=== PATIENT | female | born 1940 | race Caucasian/White ===

== ENCOUNTER 2017-05-08 14:01 | Emergency (ER) | payer OTHER ==
[~2017-05-08] VITALS: Ht 170.2 cm; Wt 84.1 kg
[~2017-05-08 14:01] MED LIST: ACTO45TA PO; ASPI1TAB7; CARV6.25 PO; CYMB60CA PO; FLUTI110I INH; FURO20 PO; GLUCTAB PO; ISOS20TA38 PO; LISI10 PO; NAPR220T95 PO; NITR.4 SL; PLAV75TA PO; PROT40TA PO; RANO500 PO; ZOCO40TA PO; tumeric PO
[2017-05-08 14:41] VITALS: BP 123/55; TEMP 98.9; O2SAT 96
--- NOTE | 2017-05-08 16:04 | RADRPT ---
EXAM DATE/TIME: 05/08/2017 15:54 [facility] COMPARISON: No previous studies available for comparison. INDICATIONS : TRauma, patient fell hit head,. RADIATION DOSE: 30.35 CTDIvol (mGy) MEDICAL HISTORY : Cardiovascular disease. Hypertension. Chronic obstructive pulmonary disease. SURGICAL HISTORY : None. ENCOUNTER: Initial ACUITY: 1 day PAIN SCALE: 8/10 LOCATION: cranial TECHNIQUE: Multiple contiguous axial images were obtained of the head. Using automated exposure control and adj ustment of the mA and/or kV according to patient size, radiation dose was kept as low as reasonably a chievable to obtain optimal diagnostic quality images. DICOM format image data is available electro nically for review and comparison. FINDINGS: CEREBRUM: The ventricles are normal for age. No evidence of midline shift, mass lesion, hemorrhage or acute in farction. No extra-axial fluid collections are seen. POSTERIOR FOSSA: The cerebellum and brainstem are intact. The 4th ventricle is midline. The cerebellopontine angle i s unremarkable. EXTRACRANIAL: The visualized portion of the orbits is intact. SKULL: The calvaria is intact. No evidence of skull fracture. CONCLUSION: Normal examination for a patient of this age. Bro Patel MD on May 08, 2017 at 16:00 Board Certified Radiologist. This report was verified electronically.
--- NOTE | 2017-05-08 16:12 | RADRPT ---
EXAM DATE/TIME: 05/08/2017 15:19 [facility] COMPARISON: CHEST SINGLE AP, December 28, 2015, 10:50. INDICATIONS : Fell on concrete. Complains of chest pain. MEDICAL HISTORY : Chronic obstructive pulmonary disease. Diabetes mellitus type II. Hypertension. SURGICAL HISTORY : CABG. Hysterectomy. ENCOUNTER: Initial ACUITY: 1 day PAIN SCORE: 5/10 LOCATION: Bilateral chest FINDINGS: PA and lateral views of the chest demonstrate the lungs to be hypo-aerated without evidence of mass, infiltrate or effusion. The cardiomediastinal contours are unremarkable. Osseous structures are int act. Evidence of prior median sternotomy cardiac surgery. CONCLUSION: No acute disease. No significant change has occurred. Bro Patel MD on May 08, 2017 at 16:08 Board Certified Radiologist. This report was verified electronically.
--- NOTE | 2017-05-08 16:20 | RADRPT ---
EXAM DATE/TIME: 05/08/2017 15:54 [facility] COMPARISON: No previous studies available for comparison. INDICATIONS : Trauma, patient fell, complains of neck pain. RADIATION DOSE: 17.39 CTDIvol (mGy) MEDICAL HISTORY : Cardiovascular disease. Hypertension. Chronic obstructive pulmonary disease. SURGICAL HISTORY : Non-responsive. ENCOUNTER: Initial ACUITY: 1 day PAIN SCALE: 8/10 LOCATION: neck TECHNIQUE: Volumetric scanning of the cervical spine was performed. Multiplanar reconstructions in the sagittal, coronal and oblique axial planes were performed. Using automated exposure control and adjustment o f the mA and/or kV according to patient size, radiation dose was kept as low as reasonably achievable to obtain optimal diagnostic quality images. DICOM format image data is available electronically f or review and comparison. FINDINGS: VERTEBRAE: Normal vertebral body height. Degenerative changes C4-C7. ALIGNMENT: No evidence of subluxation. C2-C3: The bony spinal canal is normal in size. No evidence of disc bulge or herniation. The neural forami na are bilaterally patent. C3-C4: The bony spinal canal is normal in size. No evidence of disc bulge or herniation. The neural forami na are bilaterally patent. C4-C5: The bony spinal canal is normal in size. No evidence of disc bulge or herniation. The neural forami na are bilaterally patent. C5-C6: Minimal posterior disc osteophyte complex without canal stenosis. Moderate narrowing of left neural f oramen. Right neural foramina is patent C6-C7: The bony spinal canal is normal in size. No evidence of disc bulge or herniation. The neural forami na are bilaterally patent. C7-T1: The bony spinal canal is normal in size. No evidence of disc bulge or herniation. The neural forami na are bilaterally patent. CONCLUSION: 1. No fracture or subluxation. Anurag Walden MD on May 08, 2017 at 16:16 Board Certified Radiologist. This report was verified electronically.
--- NOTE | 2017-05-08 16:31 | RADRPT ---
EXAM DATE/TIME: 05/08/2017 15:39 [facility] COMPARISON: No previous studies available for comparison. INDICATIONS : Fell on concrete. Complains of left hand pain. MEDICAL HISTORY : Chronic obstructive pulmonary disease. Hypertension SURGICAL HISTORY : Hysterectomy. CABG. ENCOUNTER: Initial ACUITY: 1 day PAIN SCORE: 5/10 LOCATION: Left hand FINDINGS: Bony structures are demineralized probably osteopenic. There are osteoarthritic changes at the second metacarpal phalangeal joint no evidence of dislocation. There is osteoarthritic change at the first metacarpal multangular articulation. There is a transverse and minimally oblique fracture at the base of the proximal phalanx of the fifth finger with slight dorsal lateral angulation without distractio n of fragments or displacement CONCLUSION: Fracture base of proximal phalanx of the fifth finger. Bro Patel MD on May 08, 2017 at 16:26 Board Certified Radiologist. This report was verified electronically.
--- NOTE | 2017-05-08 16:33 | RADRPT ---
EXAM DATE/TIME: 05/08/2017 15:35 [facility] COMPARISON: No previous studies available for comparison. INDICATIONS : Fell on concrete. Complains of left forearm pain. MEDICAL HISTORY : Hypertension. Chronic obstructive pulmonary disease. Diabetes mellitus type II. SURGICAL HISTORY : CABG. Hysterectomy. ENCOUNTER: Initial ACUITY: 1 day PAIN SCORE: 5/10 LOCATION: Left forearm FINDINGS: Two view examination of the left forearm demonstrates no evidence of fracture or dislocation. Bony m ineralization is normal. The soft tissue structures are intact. CONCLUSION: Unremarkable examination of the left forearm. Bro Patel MD on May 08, 2017 at 16:29 Board Certified Radiologist. This report was verified electronically.
--- NOTE | 2017-05-08 16:33 | RADRPT ---
EXAM DATE/TIME: 05/08/2017 15:34 [facility] COMPARISON: No previous studies available for comparison. INDICATIONS : Fell on concrete, complains of pain left humerus. MEDICAL HISTORY : Chronic obstructive pulmonary disease. Diabetes mellitus type II. SURGICAL HISTORY : Hysterectomy. Carotid endarterectomy. ENCOUNTER: Initial ACUITY: 1 day PAIN SCORE: 5/10 LOCATION: Left humerus FINDINGS: Two view examination of the left humerus demonstrates no evidence of fracture or dislocation. Bony m ineralization is normal. The soft tissue structures are intact. CONCLUSION: No acute bony injury Bro Patel MD on May 08, 2017 at 16:30 Board Certified Radiologist. This report was verified electronically.
--- NOTE | 2017-05-08 16:35 | RADRPT ---
EXAM DATE/TIME: 05/08/2017 15:26 [facility] COMPARISON: No previous studies available for comparison. INDICATIONS : Fall on concrete. Complains of upper back pain. MEDICAL HISTORY : Chronic obstructive pulmonary disease. Diabetes mellitus type II. Hypertension. SURGICAL HISTORY : CABG. Hysterectomy. ENCOUNTER: Initial ACUITY: 1 day PAIN SCORE: 5/10 LOCATION: Thoracic spine FINDINGS: There is normal alignment of the thoracic vertebral bodies. Degenerative changes and kyphosis. Statu s post CABG Vertebral body height is maintained. No evidence of fracture or subluxation. Pedicles a re intact at all levels. The paravertebral reflections are not thickened. CONCLUSION: Degenerative changes and kyphosis. Anurag Walden MD on May 08, 2017 at 16:32 Board Certified Radiologist. This report was verified electronically.
--- NOTE | 2017-05-08 16:35 | RADRPT ---
EXAM DATE/TIME: 05/08/2017 15:27 [facility] COMPARISON: No previous studies available for comparison. INDICATIONS : Fell on concrete, complains of left knee pain. MEDICAL HISTORY : Hypertension. Chronic obstructive pulmonary disease. SURGICAL HISTORY : CABG. Hysterectomy. ENCOUNTER: Initial ACUITY: 1 day PAIN SCORE: 5/10 LOCATION: Left knee FINDINGS: There are vascular calcifications in the superficial femoral artery and popliteal artery. Bony struct ures are mildly demineralized and appear intact with no evidence of fracture or dislocation. Some mil d irregularity is noted of the soft tissues superficial to the patella which could be secondary to an external wrap bandage. CONCLUSION: No acute bony injury Bro Patel MD on May 08, 2017 at 16:31 Board Certified Radiologist. This report was verified electronically.
--- NOTE | 2017-05-08 16:36 | RADRPT ---
EXAM DATE/TIME: 05/08/2017 15:26 [facility] COMPARISON: No previous studies available for comparison. INDICATIONS : Fell on concrete, complains of lower back pain. MEDICAL HISTORY : Chronic obstructive pulmonary disease. Diabetes mellitus type II. SURGICAL HISTORY : CABG. Hysterectomy. ENCOUNTER: Initial ACUITY: 1 day PAIN SCORE: 5/10 LOCATION: Lumbar spine FINDINGS: Two view examination was performed. There are five non-rib bearing vertebral bodies. Anterolisthesis L4 on 5. Degenerative changes lower lumbar spine. Osteopenia without compression fracture.. The ped icles are intact. Bony mineralization is normal. No fracture is identified. CONCLUSION: 1. Anterolisthesis L4 on 5. 2. Degenerative changes. 3. Osteopenia Anurag Walden MD on May 08, 2017 at 16:33 Board Certified Radiologist. This report was verified electronically.
[2017-05-08] MEDS ORDERED: DIAZEPAM 5 MG TAB PO ONE (17:30)
[2017-05-08] MEDS ORDERED: ACETAMINOPHEN 325 MG TAB PO ONE (17:30)
--- NOTE | 2017-05-08 17:36 | PD ---
HPI Chief Complaint: Fall Time Seen by Provider: 17:09 Travel History International Travel<30 days: No Contact w/Intl Traveler<30days: No Traveled to known affect area: No History of Present Illness HPI 76yo F with PMH of CAD, asthma presents to the ED with c/o fall at 12:30pm today. Pt was walking from garage to her house and thinks that she step on the crack on the floor and fell on her left side. Pt hit her head and is complaining of left sided pain in her head, back pain, left shoulder pain, left arm pain, left fifth finger pain, and left knee pain. Pt has abrasion on left knee and small laceration on left forehead. Denies any LOC, dizziness, fever, chest pain, sob, n/v, abdominal pain, focal weakness or numbness. PFSH Past Medical History Anemia: Yes Arthritis: Yes Asthma: Yes Autoimmune Disease: No Anxiety: No Depression: Yes Heart Rhythm Problems: No Cancer: No Cardiac Catheterization: Yes Cardiovascular Problems: Yes High Cholesterol: Yes Chest Pain: Yes (current admit) Congestive Heart Failure: Yes COPD: Yes Cerebrovascular Accident: No Coronary Artery Disease: Yes Diabetes: Yes (type 2) Patient Takes Glucophage: No Diminished Hearing: Yes Endocrine: No GERD: Yes (and gerd) Genitourinary: No Hiatal Hernia: No Hypertension: Yes Immune Disorder: No Kidney Stones: No Musculoskeletal: Yes Neurologic: No Psychiatric: Yes Reproductive: No Respiratory: Yes Immunizations Current: Yes (FLU-2005) Migraines: No Myocardial Infarction: Yes (1979,1983) Renal Failure: No Seizures: No Sleep Apnea: No Thyroid Disease: No Ulcer: No Tetanus Vaccination: Unknown Influenza Vaccination: No ?: Not Menopausal: Yes Past Surgical History Abdominal Surgery: No AICD: No Cardiac Surgery: Yes (CABG TRIPLE,) Coronary Artery Bypass Graft: Yes (X 3) Ear Surgery: No Endocrine Surgery: No Eye Surgery: Yes (many years ago) Genitourinary Surgery: No Gynecologic Surgery: Yes (HYSTERECTOMY) Hysterectomy: Yes Insulin Pump: No Joint Replacement: No Oral Surgery: No Pacemaker: No Thoracic Surgery: No Other Surgery: Yes Social History Alcohol Use: Yes (rarely wine) Tobacco Use: Yes (QUIT ) Substance Use: No Allergies-Medications (Allergen,Severity, Reaction): Coded Allergies: propranolol (Unverified Adverse Reaction, Severe, 11/21/16) Reported Meds & Prescriptions Reported Meds & Active Scripts Active Ranexa 500 mg (Ranolazine) 500 Mg Tab 1 Tab PO BID 30 Days Prinivil 10 mg (Lisinopril) 10 Mg Tab 10 Mg PO DAILY Coreg 6.25 mg (Carvedilol) 6.25 Mg Tab 6.25 Mg PO BID Reported [tumeric] 1 Cap PO DAILY Aleve (Naproxen Sodium) 220 Mg Tab 220 Mg PO BID Nitroglycerin 0.4 Mg Subl 0.4 Mg SL DIRECTED Cymbalta (Duloxetine Hcl) 60 Mg Cap 60 Mg PO BID Flovent Hfa (Fluticasone Propionate) 110 Mcg/Act Aer 1 Puff INH BID Protonix (Pantoprazole Sodium) 40 Mg Tabdr 40 Mg PO BIDAC Zocor 40 mg (Simvastatin) 40 Mg Tab 40 Mg PO HS Aspirin 81 mg Tab (Aspirin) 81 Mg Tab DAILY Actos (Pioglitazone HCl) 45 Mg Tab 45 Mg PO DAILYAC Plavix (Clopidogrel Bisulfate) 75 Mg Tab 75 Mg PO DAILY Glucophage (Metformin HCl) 500 Mg Tab 500 Mg PO BID Lasix 20 Mg Tab (Furosemide) 20 Mg Tab 40 Mg PO DAILY Isosorbide Mononitrate 20 Mg Tab 40 Mg PO BID Review of Systems Except as stated in HPI: all other systems reviewed are Neg Physical Exam Narrative GENERAL: 76yo F in mild distress. SKIN: Focused skin assessment warm/dry. HEAD: Irregular shape laceration 1cm left forehead. EYES: Pupils equal and round at 3mm bilaterally. EOMI. ENT: No nasal bleeding or discharge. Mucous membranes pink and moist. NECK: Trachea midline. No JVD. CARDIOVASCULAR: Regular rate and rhythm. No murmur appreciated. RESPIRATORY: No accessory muscle use. Clear to auscultation. Breath sounds equal bilaterally. GASTROINTESTINAL: Abdomen soft, non-tender, nondistended. MUSCULOSKELETAL: Left hand: +TTP left fifth digit. Unable to fully extend fifth IP. Sensation intact. Radial pulse 2+. NEUROLOGICAL: Awake and alert. No obvious cranial nerve deficits. Motor grossly within normal limits. Normal speech. PSYCHIATRIC: Appropriate mood and affect; insight and judgment normal. Data Data Last Documented VS Vital Signs Date Time Temp Pulse Resp B/P (MAP) Pulse Ox O2 Delivery O2 Flow Rate FiO2 05/08/17 18:42 51 16 149/66 (93) 96 05/08/17 16:19 Room Air 05/08/17 14:[address] Brain W/O Iv Contrast(Rout) (05/08/17 ) Ct Cerv Spine W/O Contrast (05/08/17 ) Chest, Pa & Lat (05/08/17 ) Spine, Thoracic-Ap/Lat/Sw(3vw) (05/08/17 ) Forearm (2vws) (05/08/17 ) Humerus (Min 2vws) (05/08/17 ) Hand, Complete ([id number]) (05/08/17 ) Knee, Complete (4vws) (05/08/17 ) Spine, Lumbar - Ltd (Ap & Lat) (05/08/17 ) Acetaminophen (Tylenol) (05/08/17 17:30) Diazepam (Valium) (05/08/17 17:30) Splint Or Brace Apply/Monitor (05/08/17 17:36) Ketorolac Inj (Toradol Inj) (05/08/17 18:30) Tetanus/Diphtheria Tox Adult (Tetanus/Di (05/08/17 19:00) MDM Medical Decision Making Medical Screen Exam Complete: Yes Emergency Medical Condition: Yes Differential Diagnosis Fracture vs. ICH vs. laceration vs. contusion Narrative Course 76yo F here with multiple complaints after what sounds like a mechanical fall today. Pt is on plavix. CT cervical spine negative. CXR negative. Xray left hand showed fracture base of proximal phalanx of fifth finger. CT brain negative. Xray left humerus negative. Xray left knee negative. Xray lumbar spine showed anterolisthesis L4 on 5. Degenerative changes. Xray left forearm negative. Xray thoracic spine showed degenerative changes. They did write chest pain in triage but pt denies any chest pain to me. Pt's left hand placed in ulna gutter splint. Pt given acetaminophen, and valium but still with pain. Pt given toradol and pain improved. Also updated pt's tetanus. Left forehead laceration repaired with dermabond. Return precautions given. Procedures Procedure Narrative LACERATION LOCATION: Left forehead LENGTH: 1cm NUMBER OF STITCHES/MARÍA: Dermabond. REPAIR: The wound was cleaned closed using dermabond. This was a single layer repair. Patient tolerated the procedure well. Diagnosis Primary Impression: Fall Qualified Codes: W19.XXXA - Unspecified fall, initial encounter Referrals: Mariella Garza MD call for appointment Fracture base of left proximal phalanx of fifth finger. Patient Instructions: General Instructions Departure Forms: Tests/Procedures Additional Instructions: Please follow up with hand clinic in 3-7 days. Return to the ED if symptoms worsen. Med/Other Pt SpecificInfo: Prescription(s) given Scripts Acetaminophen (Tylenol) 325 Mg Tab 650 MG PO Q6H Y for PAIN SCALE 1 TO 4, #20 TAB 0 Refills Prov: Parul Chino DO 05/08/17 Disposition: 01 DISCHARGE HOME Condition: Stable Parul Chino DO May 08, 2017 17:36
[2017-05-08] MEDS ORDERED: KETOROLAC TROMETHAMINE 60 MG/2 ML (IM) VIAL IM ONE (18:30)
[2017-05-08 18:42] VITALS: BP 149/66; PULSE 51; RESP 16; O2SAT 96
[2017-05-08] MEDS ORDERED: TETANUS/DIPHTHERIA TOXOID ADULT 0.5 ML VIAL IM ONE (19:00)
[2017-05-08] MEDS ORDERED: TYLE325T PO (19:04)
== END 2017-05-08 19:24 | disposition home or self-care (01) ==
LOC: NEPD 14:01
DX: S62.617A Displaced fracture of proximal phalanx of left little finger, initial encounter for closed fracture (principal); S01.81XA Laceration without foreign body of other part of head, initial encounter; S80.212A Abrasion, left knee, initial encounter; M54.2 Cervicalgia; M25.512 Pain in left shoulder; E11.9 Type 2 diabetes mellitus without complications; E78.00 Pure hypercholesterolemia, unspecified; I11.0 Hypertensive heart disease with heart failure; I50.9 Heart failure, unspecified; I25.10 Atherosclerotic heart disease of native coronary artery without angina pectoris; I25.2 Old myocardial infarction; K21.9 Gastro-esophageal reflux disease without esophagitis; J44.9 Chronic obstructive pulmonary disease, unspecified; W19.XXXA Unspecified fall, initial encounter; Y93.01 Activity, walking, marching and hiking; Y92.008 Other place in unspecified non-institutional (private) residence as the place of occurrence of the external cause; Z23 Encounter for immunization; Z79.84 Long term (current) use of oral hypoglycemic drugs; Z87.891 Personal history of nicotine dependence
CPT/HCPCS: 12011; 29125; 70450; 71046; 72072; 72100; 72125; 73060; 73090; 73130; 73564; 90471; 90714; 96372; 99284; J1885